=== PATIENT | female | born 1975 | race Caucasian/White ===

== ENCOUNTER 2023-08-08 09:34 | Outpatient (CLI) | payer OTHER ==
[~2023-08-08 09:34] MED LIST: HYZAAR 100-121 UDTAB PO
== END 2023-08-08 09:41 | disposition home or self-care (01) ==
LOC: MRI 09:34
PROVIDERS: ATTEND Specialist
DX: K80.10 Calculus of gallbladder with chronic cholecystitis without obstruction (principal)
CPT/HCPCS: 74181

== ENCOUNTER 2023-08-15 08:33 | Outpatient (CLI) | payer OTHER | END 2023-08-15 08:40 | disposition home or self-care (01) | LOC: RAD 08:33 | PROVIDERS: ATTEND Specialist | DX: D51.0 Vitamin B12 deficiency anemia due to intrinsic factor deficiency (principal); K80.10 Calculus of gallbladder with chronic cholecystitis without obstruction ==

== ENCOUNTER 2023-08-15 09:07 | Outpatient (CLI) | payer OTHER ==
[2023-08-15 10:37] LABS: HEMATOCRIT 39.9 % (36.0-45.00); HEMOGLOBIN 13.1 g/dL (12.0-15.00); MEAN CELL VOLUME 91.9 fL (80.00-100.00); MEAN CORPUSCULAR HEMOGLOBIN 30.1 pg (27.00-32.0); MEAN CORPUSCULAR HGB CONC 32.7 g/dl (32.0-36.0); PLATELET COUNT 241 K/uL (150-450); RED BLOOD COUNT 4.34 M/uL (4.00-6.00); RED CELL DISTRIBUTION WIDTH 13.9 % (11.5-14.5)
[2023-08-15 10:43] LABS: PH,URINE 5.5 (5.0-8.0); URINE APPEARANCE Cloudy; URINE BILIRRUBIN Negative (NEGATIVE); URINE BLOOD Negative; URINE COLOR Yellow; URINE GLUCOSE Negative (NEGATIVE); URINE LEUKOCYTE Negative; URINE NITRATE Negative; URINE PROTEIN Negative (NEGATIVE); URINE UROBILINOGEN 0.2 E.U./dl
[2023-08-15 10:47] LABS: URINE BACTERIA 1998.1 uL (0.0-1933); URINE EPITHELIAL CELLS 53.6 uL (0.0-38.8); URINE RBC 3.7 uL (0.0-20.8); URINE WBC 8.3 uL (0.0-23.2)
[2023-08-15 11:15] LABS: INR 1.01; PARTIAL THROMBOPLASTIN TIME 28.8 SECONDS (22.0-34.0); PROTHROMBIN TIME 10.6 SECONDS (9.0-11.5)
[2023-08-15 11:17] LABS: ALBUMIN 3.9 gm/dL (3.4-5.0); BILIRUBIN TOTAL 0.49 mg/dL (0.3-1.2); CALCIUM 9.3 mg/dL (8.5-10.1); CREATININE SERUM 0.85 mg/dL (0.55-1.02); GFR 72.32; POTASSIUM 4.2 mEq/L (3.5-5.1); TOTAL PROTEIN 7.9 gm/dL (6.4-8.2)
== END 2023-08-15 09:17 | disposition home or self-care (01) ==
LOC: LAB 09:07
PROVIDERS: ATTEND Specialist
DX: D51.0 Vitamin B12 deficiency anemia due to intrinsic factor deficiency (principal)

== ENCOUNTER 2023-08-16 07:46 | Outpatient (CLI) | payer OTHER ==
[2023-08-16] MEDS ORDERED: ATACAND HCT 161 EACH PO (09:28)
== END 2023-08-16 07:49 | disposition home or self-care (01) ==
LOC: MAMO-SONO 07:46
PROVIDERS: ATTEND General Practice
DX: Z12.31 Encounter for screening mammogram for malignant neoplasm of breast (principal); Z12.39 Encounter for other screening for malignant neoplasm of breast; N64.9 Disorder of breast, unspecified

== ENCOUNTER 2023-08-21 05:28 | Day surgery (SDC) | payer OTHER ==
[~2023-08-21] VITALS: Ht 160 cm; Wt 60.8 kg
[~2023-08-21 05:28] MED LIST changes: +ATACAND HCT 161 EACH PO
== END 2023-08-21 15:55 | disposition home or self-care (01) ==
LOC: CIR.AMB 05:28
PROVIDERS: ATTEND Specialist
DX: K80.10 Calculus of gallbladder with chronic cholecystitis without obstruction (principal); I10 Essential (primary) hypertension; Z20.822 Contact with and (suspected) exposure to COVID-19

== ENCOUNTER 2024-08-20 08:39 | Outpatient (CLI) | payer OTHER | END 2024-08-20 08:46 | disposition home or self-care (01) | LOC: MAMO-SONO 08:39 | PROVIDERS: ATTEND General Practice | DX: N64.9 Disorder of breast, unspecified (principal); Z12.31 Encounter for screening mammogram for malignant neoplasm of breast; Z12.39 Encounter for other screening for malignant neoplasm of breast ==